=== PATIENT | male | born 1975 | race Caucasian/White ===

== ENCOUNTER → 2017-08-10 | Outpatient (CLI) | payer OTHER ==
[~2017-08-10] MED LIST: AUGMENTIN 875-1 EACH PO; BENZONATATE200 MG PO; LISINOPRIL 10MG10 MG PO; MECLIZINE 25MG25 MG PO; MEDROL 4MG. DOSE4 MG PO; NAPROXEN SODIU500 MG PO; PROVENTIL0.09 MG/A1 IH; VENLAFAXINE HCL75 M1 PO; ZOFRAN4 MG PO; ZOLOFT100 MG PO
--- NOTE | 2017-08-10 09:23 | RADIOLOGY REPORT PS360 ---
US RUQ-(ABD LTD)1ORGAN/QUAD/FU HISTORY: Right upper quadrant pain and indigestion RUQ PAIN ORDERING PHYSICIAN: Adrian Trinh MD PATIENT AGE: 42 years COMPARISON: None FINDINGS: PANCREAS:Unremarkable. No obvious mass or abnormal fluid collection. No ductal dilatation LIVER:No focal liver lesions demonstrated. Homogeneous echogenicity. No intrahepatic biliary ductal dilatation evident RIGHT KIDNEY:Unremarkable. Normal size and echogenicity. No hydronephrosis GALLBLADDER:No gallstones, gallbladder wall thickening, pericholecystic fluid, or biliary dilatation. IMPRESSION: Negative right upper quadrant ultrasound
== END ==
LOC: RAD 07:51
DX: R10.11 Right upper quadrant pain (principal)